=== PATIENT | female | born 1975 | race Caucasian/White ===

== ENCOUNTER 2016-09-12 17:21 | Emergency (ER) | payer MEDICAID ==
[~2016-09-12] VITALS: Ht 170.2 cm; Wt 90.0 kg
[~2016-09-12 17:21] MED LIST: HYDR-3535 PO; PENI500T PO; VENTAER INH
[2016-09-12 17:34] VITALS: BP 113/64; PULSE 80; RESP 15; TEMP 98.3; O2SAT 100
[2016-09-12 18:04] LABS: BLOOD, URINE LARGE (NEG); GLUCOSE,URINE NEG (NEG); KETONE, URINE NEG (NEG); NITRITE,URINE NEG (NEG); PH, URINE 6.5 (5.0-8.5)
[2016-09-12 18:29] LABS: METHOD OF COLLECTION CLEAN CATCH; URINE COLOR YELLOW (YELLW/STRAW); WBC, URINE 0-2 /hpf (0-5)
[2016-09-12 18:30] LABS: BACTERIA, URINE RARE /hpf; COMMENT (UR) CULT NOT INDICATED; CULTURE IF INDICATED CULT NOT INDICATED; SQUAMOUS EPITHELIAL CELL URINE 0-5 /hpf (0-5)
[2016-09-13] MEDS ORDERED: TRAM50TA PO (12:06)
[2016-09-13] MEDS ORDERED: ZOFR4TAB PO (12:06)
== END 2016-09-12 18:45 | disposition left against medical advice (07) ==
LOC: PHED 17:21
DX: R68.89 Other general symptoms and signs (principal)
CPT/HCPCS: 81001; 99281

== ENCOUNTER 2016-09-13 10:46 | Emergency (ER) | payer MEDICAID ==
[~2016-09-13] VITALS: Ht 170.2 cm; Wt 90.0 kg
[2016-09-13 10:54] VITALS: BP 115/67; PULSE 81; RESP 17; TEMP 98; O2SAT 97
[2016-09-13 11:09] VITALS: BP 123/72; PULSE 84; RESP 18; O2SAT 98
[2016-09-13 11:15] LABS: BLOOD, URINE LARGE (NEG); GLUCOSE,URINE NEG (NEG); KETONE, URINE NEG (NEG); NITRITE,URINE NEG (NEG)
[2016-09-13 11:22] LABS: METHOD OF COLLECTION CLEAN CATCH; URINE COLOR YELLOW (YELLW/STRAW)
[2016-09-13] MEDS ORDERED: ROCURONIUM INJ 50 MG/5 ML VIAL ONE (11:22)
[2016-09-13 11:23] LABS: BACTERIA, URINE OCC /hpf; COMMENT (UR) CULT NOT INDICATED; CULTURE IF INDICATED CULT NOT INDICATED; RBC, URINE 100-200 /hpf (0-3); SQUAMOUS EPITHELIAL CELL URINE 0-5 /hpf (0-5)
[2016-09-13] MEDS ORDERED: ETOMIDATE 20 MG/10 ML VIAL ONE (11:23)
--- NOTE | 2016-09-13 11:25 | PD ---
HPI Chief Complaint: Abdominal Pain Time Seen by Provider: 11:13 Travel History International Travel<30 days: No Contact w/Intl Traveler<30days: No Traveled to known affect area: No History of Present Illness HPI The patient was seen and examined in the presence of the nurse. This patient complains of left lower quadrant pain. Duration 2 days. Severity is moderate. No nausea or vomiting or diarrhea. Denies hematuria or dysuria or fever. No alleviating factors. She has history of multiple kidney stones and is worried about having another one. PFSH Past Medical History Arthritis: No Asthma: Yes Autoimmune Disease: No Blood Disorders: No Anxiety: Yes Depression: Yes Cancer: No Cardiovascular Problems: No Chemotherapy: No Cirrhosis: Yes Diabetes: No Diminished Hearing: No Endocrine: No Gastrointestinal Disorders: Yes Glaucoma: No Genitourinary: Yes (KIDNEY STONES) Headaches: Yes Hepatitis: Yes (C) Hiatal Hernia: No Hypertension: No Immune Disorder: No Kidney Stones: Yes (9 TIMES IN PAST, SX 2 TIMES FOR REMOVAL) Medical other: Yes (LOW BACK PROBLEMS) Musculoskeletal: Yes Neurologic: No Psychiatric: No Reproductive: Yes (ENDOMETRIOSIS) Respiratory: Yes (Asthma ) Immunizations Current: Yes Migraines: Yes Radiation Therapy: No Seizures: No Thyroid Disease: No Tetanus Vaccination: < 5 Years Influenza Vaccination: No ?: Not : 4 Para: 3 Miscarriage: 1 : 1 Ovarian Cysts: Yes Dilation and Curettage (D&C): Yes Tubal Ligation: Yes Past Surgical History Abdominal Surgery: No AICD: No Arteriovenous Shunt: No Cardiac Surgery: No Section: Yes Ear Surgery: No Endocrine Surgery: No Eye Surgery: No Genitourinary Surgery: No Gynecologic Surgery: Yes (D&C; C/S 2004, HYSTEROSCOPY 09/2009) Hysterectomy: Yes Insulin Pump: No Joint Replacement: No Neurologic Surgery: No Oral Surgery: Yes (TONSILLECTOMY 1978) Pacemaker: No Thoracic Surgery: No Tonsillectomy: Yes Other Surgery: Yes (D/C) Family History Family Hypercholesterolemia: Yes Social History Alcohol Use: No Tobacco Use: Yes (3 cigs per day.) Substance Use: No Allergies-Medications (Allergen,Severity, Reaction): Coded Allergies: Codeine (Verified Allergy, Severe, Hives, 09/13/16) Latex (Verified Allergy, Severe, Hives, 09/13/16) Adhesives (Verified Allergy, Intermediate, Itching, 09/13/16) Uncoded Allergies: RUBBER (Allergy, Intermediate, HIVES/ITCHING, 07/24/16) Reported Meds & Prescriptions Reported Meds & Active Scripts Active No Active Prescriptions or Reported Medications Review of Systems General / Constitutional: No: Fever Eyes: No: Visual changes HENT: No: Headaches Cardiovascular: No: Chest Pain or Discomfort Respiratory: No: Shortness of Breath Gastrointestinal: Positive: Abdominal Pain Genitourinary: Positive: Flank Pain, No: Dysuria Musculoskeletal: No: Pain Skin: No Rash Neurologic: No: Weakness Psychiatric: No: Depression Endocrine: No: Polydipsia Hematologic/Lymphatic: No: Easy Bruising Physical Exam Narrative GENERAL: Well-nourished, well-developed patient with left lower quadrant and left flank pain . SKIN: Warm and dry. HEAD: Atraumatic. Normocephalic. EYES: Pupils equal and round. No scleral icterus. No injection or drainage. ENT: No nasal bleeding or discharge. Mucous membranes pink and moist. NECK: Trachea midline. No JVD. CARDIOVASCULAR: Regular rate and rhythm. No murmur appreciated. RESPIRATORY: No accessory muscle use. Clear to auscultation. Breath sounds equal bilaterally. GASTROINTESTINAL: Abdomen soft, left lower quadrant is tender without rebound or guarding, nondistended. Hepatic and splenic margins not palpable. MUSCULOSKELETAL: No obvious deformities. No clubbing. No cyanosis. No edema. NEUROLOGICAL: Awake and alert. No obvious cranial nerve deficits. Motor grossly within normal limits. Normal speech. PSYCHIATRIC: Appropriate mood and affect; insight and judgment normal. Data Data Last Documented VS Vital Signs Date Time Temp Pulse Resp B/P Pulse Ox O2 Delivery O2 Flow Rate FiO2 09/13/16 12:00 86 18 108/70 98 09/13/16 11:09 Room Air 09/13/16 10:54 98.0 Orders Urinalysis - C+S If Indicated (09/13/16 11:07) Ct Abd/Pel W/O Iv Contrast (09/13/16 ) Acetamin-Hydrocod 325-5 Mg ([place] 5-325 (09/13/16 11:30) Ketorolac Inj (Toradol Inj) (09/13/16 11:30) Rocuronium Inj (Zemuron Inj) (09/13/16 11:22) Etomidate Inj (Amidate Inj) (09/13/16 11:23) Labs Laboratory Tests Test 09/13/16 11:10 Urine Collection Type CLEAN CATCH Urine Color YELLOW Urine Turbidity SLIGHT Urine pH 7.0 Urine Specific [place] 1.014 Urine Protein NEG mg/dL Urine Glucose (UA) NEG mg/dL Urine Ketones NEG mg/dL Urine Occult Blood LARGE Urine Nitrite NEG Urine Bilirubin NEG Urine Leukocyte Esterase NEG Urine RBC 100-200 /hpf Urine WBC 6-8 /hpf Urine Squamous Epithelial 0-5 /hpf Cells Urine Bacteria OCC /hpf Microscopic Urinalysis Comment CULT NOT INDICATED Urine Collection Time 11:10 [facility] Medical Decision Making Medical Screen Exam Complete: Yes Emergency Medical Condition: Yes Medical Record Reviewed: Yes Differential Diagnosis Colitis, pyelonephritis, kidney stone Narrative Course I have reviewed the patient's electronic medical record. Patient was seen here June [address] revealing only a 1 mm stone Patient's normal vital signs. No objective findings on exam. Discussed risk and benefit of repeat CT She would like to proceed Urinalysis shows hematuria but no infection CT of abdomen and pelvis is identical to the prior one with a 1 mm left-sided nonobstructive stone and no other emergent findings I gave her Toradol injection and 2 pain pills Etiology of her pain is unclear. She is given Zofran and tramadol for symptom relief. Recommending primary care follow-up Diagnosis Primary Impression: Abdominal pain Qualified Code: R10.32 - Left lower quadrant pain Additional Impression: Left flank pain Additional Instructions: The patient was advised to follow up with their physician and return if they worsen. The patient was warned about potential sedation for the medications they will receive on prescription. Med/Other Pt SpecificInfo: Prescription(s) given Scripts Ondansetron (Zofran)4 Mg Tab4 Mg PO Q6HR PRN (NAUSEA OR VOMITING) #12 TAB Ref 0 Prov:Basim Sanon MD 09/13/16 Tramadol 50 Mg Tab50 Mg PO Q6H PRN (PAIN) #20 TAB Ref 0 Prov:Basim Sanon MD 09/13/16 Disposition: 01 DISCHARGE HOME Condition: Stable Basim Sanon MD Sep 13, 2016 11:25
[2016-09-13] MEDS ORDERED: KETOROLAC TROMETHAMINE 60 MG/2 ML (IM) VIAL IM ONE (11:30)
[2016-09-13] MEDS ORDERED: ACETAMINOPHEN/HYDROcodone 325 MG/5 MG TAB PO ONE (11:30)
--- NOTE | 2016-09-13 11:54 | RADHPO ---
EXAM DATE/TIME: 09/13/2016 11:30 [facility] COMPARISON: CT ABDOMEN & PELVIS W/O CONTRAST, July 13, 2016, 19:24. INDICATIONS : Left flank pain. ORAL CONTRAST: No oral contrast ingested. RADIATION DOSE: 17.80 CTDIvol (mGy) MEDICAL HISTORY : Hepatitis C. Cirrhosis. Renal calculi. SURGICAL HISTORY : section. Tubal ligation.Hysterectomy. ENCOUNTER: Initial ACUITY: 1 day PAIN SCALE: 7/10 LOCATION: Left flank TECHNIQUE: Volumetric scanning of the abdomen and pelvis was performed. Using automated exposure control and ad justment of the mA and/or kV according to patient size, radiation dose was kept as low as reasonably achievable to obtain optimal diagnostic quality images. FINDINGS: The limited portion of the lung base visualized is clear. Right kidney: The right kidney is normal in size. No stones are seen. The right ureter is normal in caliber through out its course. Left kidney/ureter: The left kidney is normal in size. There is no hydronephrosis. There is a 1 mm stone seen within the midpole collecting system. The left ureter is followed throughout its course. No stones are seen with in the left ureter. The appearance of the liver, spleen, pancreas and adrenals is within normal limits. The patient is po st cholecystectomy. The abdominal aorta is normal in caliber. There is no retroperitoneal adenopathy. No free air or free fluid is present. The visualized small and large bowel are unremarkable. The pat ient is post hysterectomy. The examination does demonstrate a 2.3 x 4.4 cm soft tissue mass in the ri ght low pelvis this is felt to represent the right ovary. The left ovary is not identified. It is sta ble compared to the previous study dated 07/13/16. He CONCLUSION: 1. There is a 1 mm nonobstructing stone in the collecting system of the left kidney is stable compare d to previous. 2. No definite abnormality to explain the patient's left flank pain is identified. Jayy Mcleod MD on September 13, 2016 at 11:48 Board Certified Radiologist. This report was verified electronically.
[2016-09-13 12:00] VITALS: BP 108/70; PULSE 86; RESP 18; O2SAT 98
[2016-09-13] MEDS ORDERED: TRAM50TA PO (12:06)
[2016-09-13] MEDS ORDERED: ZOFR4TAB PO (12:06)
== END 2016-09-13 12:40 | disposition home or self-care (01) ==
LOC: PHED 10:46
DX: R10.32 Left lower quadrant pain (principal)
CPT/HCPCS: 74176; 81001; 96372; 99284; J1885

== ENCOUNTER 2017-01-07 08:45 | Emergency (ER) | payer MEDICAID ==
[~2017-01-07] VITALS: Ht 170.2 cm; Wt 80.5 kg
[~2017-01-07 08:45] MED LIST changes: -HYDR-3535 PO; -PENI500T PO; +TRAM50TA PO; -VENTAER INH; +ZOFR4TAB PO
[2017-01-07 08:58] VITALS: BP 116/76; PULSE 105; RESP 16; TEMP 97.8; O2SAT 98
[2017-01-07] MEDS ORDERED: INSOMNIA MED (09:07)
[2017-01-07] MEDS ORDERED: PERC5TAB12 PO (09:07)
[2017-01-07] MEDS ORDERED: GABA100C4 PO (09:07)
--- NOTE | 2017-01-07 09:20 | PD ---
HPI Chief Complaint: Injury Time Seen by Provider: 09:15 Travel History International Travel<30 days: No Contact w/Intl Traveler<30days: No Traveled to known affect area: No History of Present Illness HPI This 41-year-old female is complaining of right ankle pain. She says she was getting ready to bring her daughter to school when she fell on her right ankle. She is having pain on the lateral aspect of the ankle. She is currently taking Percocet and appears somewhat sleepy. She says she is sleepy because she was up with her sick daughter most of the night PFSH Past Medical History Arthritis: No Asthma: Yes Autoimmune Disease: No Blood Disorders: No Anxiety: Yes Depression: Yes Cancer: No Cardiovascular Problems: No Chemotherapy: No Cirrhosis: Yes Diabetes: No Patient Takes Glucophage: No Diminished Hearing: No Endocrine: No Gastrointestinal Disorders: Yes Glaucoma: No Genitourinary: Yes (KIDNEY STONES) Headaches: Yes Hepatitis: Yes (C) Hiatal Hernia: No Hypertension: No Immune Disorder: No Kidney Stones: Yes (9 TIMES IN PAST, SX 2 TIMES FOR REMOVAL) Medical other: Yes (LOW BACK PROBLEMS) Musculoskeletal: Yes Neurologic: No Psychiatric: No Reproductive: Yes (ENDOMETRIOSIS) Respiratory: Yes (Asthma ) Immunizations Current: Yes Migraines: Yes Radiation Therapy: No Seizures: No Thyroid Disease: No ?: Not : 4 Para: 3 Miscarriage: 1 : 1 Ovarian Cysts: Yes Dilation and Curettage (D&C): Yes Tubal Ligation: Yes Past Surgical History Abdominal Surgery: No AICD: No Arteriovenous Shunt: No Cardiac Surgery: No Section: Yes Ear Surgery: No Endocrine Surgery: No Eye Surgery: No Genitourinary Surgery: No Gynecologic Surgery: Yes (D&C; C/S 2004, HYSTEROSCOPY 09/2009) Hysterectomy: Yes Insulin Pump: No Joint Replacement: No Neurologic Surgery: No Oral Surgery: Yes (TONSILLECTOMY 1978) Pacemaker: No Thoracic Surgery: No Tonsillectomy: Yes Other Surgery: Yes (D/C) Family History Family Hypercholesterolemia: Yes Social History Alcohol Use: No Tobacco Use: Yes (6 cigs per day.) Substance Use: No Allergies-Medications (Allergen,Severity, Reaction): Coded Allergies: Codeine (Verified Allergy, Severe, Hives, 09/13/16) Latex (Verified Allergy, Severe, Hives, 09/13/16) Adhesives (Verified Allergy, Intermediate, Itching, 09/13/16) Uncoded Allergies: RUBBER (Allergy, Intermediate, HIVES/ITCHING, 07/24/16) Reported Meds & Prescriptions Reported Meds & Active Scripts Active Reported [insomnia med] Gabapentin 100 Mg Cap 100 Mg PO TID Percocet (Oxycodone-Acetaminophen) 5-325 mg Tab 1 Tab PO Q4H PRN Review of Systems General / Constitutional: No: Fever, Chills Eyes: No: Diploplia HENT: No: Headaches, Vertigo Cardiovascular: No: Chest Pain or Discomfort, Palpitations Respiratory: No: Cough, Shortness of Breath Gastrointestinal: No: Nausea, Vomiting Genitourinary: No: Urgency, Frequency Musculoskeletal: Positive: Myalgias, Pain Skin: No Rash, No Itching Physical Exam Narrative GENERAL: Patient is sleepy but she does wake up SKIN: Focused skin assessment warm/dry. HEAD: Atraumatic. Normocephalic. EYES: Pupils equal and round. No scleral icterus. No injection or drainage. ENT: No nasal bleeding or discharge. Mucous membranes pink and moist. NECK: Trachea midline. No JVD. CARDIOVASCULAR: Regular rate and rhythm. No murmur appreciated. RESPIRATORY: No accessory muscle use. Clear to auscultation. Breath sounds equal bilaterally. GASTROINTESTINAL: Abdomen soft, non-tender, nondistended. Hepatic and splenic margins not palpable. MUSCULOSKELETAL: No obvious deformities. No clubbing. No cyanosis. No edema. Her swelling and tenderness of the lateral aspect of the right ankle. The knee is nontender NEUROLOGICAL: Awake and alert. No obvious cranial nerve deficits. Motor grossly within normal limits. Slurred speech. PSYCHIATRIC: Appropriate mood and affect; insight and judgment normal. Data Data Last Documented VS Vital Signs Date Time Temp Pulse Resp B/P Pulse Ox O2 Delivery O2 Flow Rate FiO2 01/07/17 08:58 97.8 105 16 116/76 98 Orders Ankle, Complete ([id number]) (01/07/17 09:18) Acetaminophen (Tylenol) (01/07/17 10:15) MDM Medical Decision Making Medical Screen Exam Complete: Yes Emergency Medical Condition: Yes Medical Record Reviewed: Yes Differential Diagnosis Differential includes ankle fracture, ankle sprain Narrative Course X-rays negative for fracture. Impression is right ankle sprain. She says she is not able to bear weight. He put her in an ankle stirrup and crutches Diagnosis Primary Impression: Right ankle sprain Qualified Code: S93.431A - Sprain of tibiofibular ligament of right ankle, initial encounter Disposition: 01 DISCHARGE HOME Condition: Stable Carlos Feliz MD January 07, 2017 09:20
--- NOTE | 2017-01-07 09:55 | RADHPO ---
EXAM DATE/TIME: 01/07/2017 09:33 [facility] COMPARISON: No previous studies available for comparison. INDICATIONS : Fall, right ankle pain. MEDICAL HISTORY : None. SURGICAL HISTORY : None. ENCOUNTER: Initial ACUITY: 1 day PAIN SCORE: 8/10 LOCATION: Right ankle FINDINGS: Three views of the right ankle demonstrate no fracture or dislocation. Ankle mortise is intact. J[employer] alization is within normal limits and there is no significant arthropathy. No soft tissue abnormality or radiopaque foreign body is identified. CONCLUSION: No acute abnormality is identified. Hang Mcelroy MD on January 07, 2017 at 9:53 Board Certified Radiologist. This report was verified electronically.
[2017-01-07] MEDS ORDERED: ACETAMINOPHEN 325 MG TAB PO ONE (10:15)
== END 2017-01-07 10:32 | disposition home or self-care (01) ==
LOC: PHED 08:45
DX: S93.431A Sprain of tibiofibular ligament of right ankle, initial encounter (principal); J45.909 Unspecified asthma, uncomplicated; F41.9 Anxiety disorder, unspecified; F32.9 Major depressive disorder, single episode, unspecified; K74.60 Unspecified cirrhosis of liver; F17.210 Nicotine dependence, cigarettes, uncomplicated; W18.30XA Fall on same level, unspecified, initial encounter
CPT/HCPCS: 73610; 99283; E0113; L1906

== ENCOUNTER 2017-01-10 11:30 | Emergency (ER) | payer MEDICAID ==
[~2017-01-10] VITALS: Ht 170.2 cm; Wt 84.5 kg
[~2017-01-10 11:30] MED LIST changes: +GABA100C4 PO; +INSOMNIA MED; +PERC5TAB12 PO; -TRAM50TA PO; -ZOFR4TAB PO
[2017-01-10 11:33] VITALS: BP 122/73; PULSE 100; RESP 16; TEMP 98.3; O2SAT 99
--- NOTE | 2017-01-10 12:07 | PD ---
HPI Chief Complaint: Musculoskeletal Complaint Time Seen by Provider: 11:50 Travel History International Travel<30 days: No Contact w/Intl Traveler<30days: No Traveled to known affect area: No History of Present Illness HPI 41 year-old female presents to the emergency room for evaluation of right ankle pain, swelling, and bruising that started after injuring it 3 days ago. Patient came via ambulance at that time and was diagnosed with ankle sprain after having a negative x-ray. She was given Tylenol, crutches, and ankle stirrup. Patient states since then the swelling and pain has gotten worse. She states she has been elevating her ankle and using her splint and crutches but they are not helping. She has also been taking Tylenol and Motrin without relief in symptoms. Patient was given a prescription for Percocet 7 days ago for a dental abscess but no longer has any left. Patient called her primary care physician and has an appointment next week but is asking for pain control until she can get in with him. PFSH Past Medical History Arthritis: No Asthma: Yes Autoimmune Disease: No Blood Disorders: No Anxiety: Yes Depression: Yes Cancer: No Cardiovascular Problems: No Chemotherapy: No Cirrhosis: Yes Diabetes: No Diminished Hearing: No Endocrine: No Gastrointestinal Disorders: Yes Glaucoma: No Genitourinary: Yes (KIDNEY STONES) Headaches: Yes Hepatitis: Yes (C) Hiatal Hernia: No Hypertension: No Immune Disorder: No Kidney Stones: Yes (9 TIMES IN PAST, SX 2 TIMES FOR REMOVAL) Medical other: Yes (LOW BACK PROBLEMS) Musculoskeletal: Yes Neurologic: No Psychiatric: No Reproductive: Yes (ENDOMETRIOSIS) Respiratory: Yes (Asthma) Immunizations Current: Yes Migraines: Yes Radiation Therapy: No Seizures: No Thyroid Disease: No ?: Not : 4 Para: 3 Miscarriage: 1 : 1 Ovarian Cysts: Yes Dilation and Curettage (D&C): Yes Tubal Ligation: Yes Past Surgical History Abdominal Surgery: No AICD: No Arteriovenous Shunt: No Cardiac Surgery: No Section: Yes (x2) Cholecystectomy: Yes Ear Surgery: No Endocrine Surgery: No Eye Surgery: No Genitourinary Surgery: No Gynecologic Surgery: Yes (D&C; C/S 2004, HYSTEROSCOPY 09/2009) Hysterectomy: Yes Insulin Pump: No Joint Replacement: No Neurologic Surgery: No Oral Surgery: Yes (TONSILLECTOMY 1978) Pacemaker: No Thoracic Surgery: No Tonsillectomy: Yes Other Surgery: Yes Family History Family Hypercholesterolemia: Yes Social History Alcohol Use: No Tobacco Use: Yes (1/2 ppd) Substance Use: No Allergies-Medications (Allergen,Severity, Reaction): Coded Allergies: Codeine (Verified Allergy, Severe, Hives, 01/10/17) Latex (Verified Allergy, Severe, Hives, 01/10/17) Adhesives (Verified Allergy, Intermediate, Itching, 01/10/17) Uncoded Allergies: RUBBER (Allergy, Intermediate, HIVES/ITCHING, 07/24/16) Reported Meds & Prescriptions Reported Meds & Active Scripts Active No Active Prescriptions or Reported Medications Review of Systems Except as stated in HPI: all other systems reviewed are Neg Physical Exam Narrative GENERAL: Well-nourished, well-developed female in no acute distress. Afebrile. Ambulatory with crutches. SKIN: Focused skin assessment warm/dry. Moderate to severe ecchymosis of the bilateral malleoli of the right ankle. No erythema. HEAD: Normocephalic. EYES: No scleral icterus. No injection or drainage. NECK: Supple, trachea midline. No JVD or lymphadenopathy. EXTREMITY: Right ankle extremely tender to palpation over the lateral malleolus. Limited range of motion of the foot and ankle secondary to pain. Moderate to severe edema of the right lower extremity. 2+ dorsalis pedis pulses. Less than 2 second capillary refill distally. Compartments soft. Data Data Last Documented VS Vital Signs Date Time Temp Pulse Resp B/P Pulse Ox O2 Delivery O2 Flow Rate FiO2 01/10/17 11:33 98.3 100 16 122/73 99 MDM Medical Decision Making Medical Screen Exam Complete: Yes Emergency Medical Condition: No Medical Record Reviewed: Yes Differential Diagnosis Sprain Narrative Course 41-year-old female presents to the emergency room for evaluation of right ankle sprain that occurred 3 days ago. Patient came to the emergency room at the time of injury and had an x-ray was negative. Per x-ray report, ankle mortise is intact. Right lower extremity is edematous with moderate ecchymosis and extreme tenderness to palpation. There is no erythema. Compartments are soft. Right lower extremity is neurovascularly intact with 2+ dorsalis pedis pulse. This is ankle sprain. Patient was told to continue taking [id number] medications for her pain, elevate, and follow-up with her primary care physician. Because patient has recent history of narcotic use documented in [place], I do not want to contribute to the potential for addiction. There are no urgent or emergent medical conditions at this time. A medical screening exam was performed: At the time of evaluation the presenting medical condition was determined not to be of an emergent nature. The patient was given the option of receiving additional care, but declined. Patient was given options for additional community resources from which to obtain care. The Patient Has Been advised to seek medical attention for their presenting complaint. The patient has been advised to return to the ER at any time if an emergent condition develops. Diagnosis Primary Impression: Encounter for medical screening examination Scripts No Active Prescriptions or Reported Meds Disposition: 01 DISCHARGE HOME Condition: Stable Katherin Cooper January 10, 2017 12:07
== END 2017-01-10 11:57 | disposition left against medical advice (07) ==
LOC: PHEFT 11:30
DX: M25.571 Pain in right ankle and joints of right foot (principal)
CPT/HCPCS: 99281

== ENCOUNTER 2017-03-05 20:42 | Emergency (ER) | payer MEDICAID ==
[~2017-03-05] VITALS: Ht 170.2 cm; Wt 81.0 kg
[2017-03-05 20:53] VITALS: BP 115/70; PULSE 90; RESP 18; TEMP 98.8; O2SAT 97
[2017-03-05] MEDS ORDERED: GABA300C5 PO (21:11)
--- NOTE | 2017-03-05 21:36 | PD ---
HPI Chief Complaint: Laceration/Skin Injury Time Seen by Provider: 21:34 Travel History International Travel<30 days: No Contact w/Intl Traveler<30days: No Traveled to known affect area: No History of Present Illness HPI 41-year-old female presents to the emergency room for evaluation of a laceration to her left second finger that occurred just prior to arrival. Patient cut herself with a kitchen knife while cutting potatoes. States it was bleeding severely and she finally got the bleeding to stop but it opened back up. Denies being on blood thinners. Denies loss of range of motion or paresthesias. Reports moderate pain. Last tetanus was 3 years ago. 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/not treated ) Cardiovascular Problems: No Chemotherapy: No Cirrhosis: Yes Diabetes: No Diminished Hearing: No Endocrine: No Gastrointestinal Disorders: Yes Glaucoma: No Genitourinary: Yes (KIDNEY STONES) Headaches: Yes Hepatitis: Yes (C) Hiatal Hernia: No Hypertension: No Immune Disorder: No Kidney Stones: Yes Musculoskeletal: Yes ("Low back problems") Neurologic: No Psychiatric: No Reproductive: Yes (Endometriosis) Respiratory: Yes (Asthma) Immunizations Current: Yes Migraines: Yes Radiation Therapy: No Seizures: No Thyroid Disease: No Tetanus Vaccination: < 5 Years Influenza Vaccination: Yes ?: Not : 4 Para: 3 Miscarriage: 1 : 1 Ovarian Cysts: Yes Dilation and Curettage (D&C): Yes Tubal Ligation: Yes Past Surgical History Abdominal Surgery: No AICD: No Arteriovenous Shunt: No Cardiac Surgery: No Section: Yes (X's 2) Cholecystectomy: Yes Ear Surgery: No Endocrine Surgery: No Eye Surgery: No Genitourinary Surgery: Yes (Kidney stones removed ) Gynecologic Surgery: Yes (Hysteroscopy ) Hysterectomy: Yes Insulin Pump: No Joint Replacement: No Neurologic Surgery: No Oral Surgery: Yes (TONSILLECTOMY 1978) Pacemaker: No Thoracic Surgery: No Tonsillectomy: Yes Other Surgery: Yes Family History Family Hypercholesterolemia: Yes Social History Alcohol Use: No Tobacco Use: Yes (2 PPD) Substance Use: No Allergies-Medications (Allergen,Severity, Reaction): Coded Allergies: Codeine (Verified Allergy, Severe, Hives, 03/05/17) Latex (Verified Allergy, Severe, Hives, 03/05/17) Adhesives (Verified Allergy, Intermediate, Itching, 03/05/17) Uncoded Allergies: RUBBER (Allergy, Intermediate, Hives/itching, 03/05/17) Reported Meds & Prescriptions Reported Meds & Active Scripts Active Reported Gabapentin 300 Mg Cap 300 Mg PO BID Review of Systems Except as stated in HPI: all other systems reviewed are Neg Physical Exam Narrative GENERAL: Well-nourished, well-developed female in no acute distress. Afebrile. Ambulatory. SKIN: Focused skin assessment warm/dry. There is a 0.5 cm avulsion to the left second distal finger. No bleeding. HEAD: Normocephalic. EYES: No scleral icterus. No injection or drainage. NECK: Supple, trachea midline. No JVD or lymphadenopathy. CARDIOVASCULAR: Regular rate and rhythm without murmurs, gallops, or rubs. RESPIRATORY: Breath sounds equal bilaterally. No accessory muscle use. MUSCULOSKELETAL: No cyanosis, or edema. Full range of motion of the hand. Data Data Last Documented VS Vital Signs Date Time Temp Pulse Resp B/P Pulse Ox O2 Delivery O2 Flow Rate FiO2 03/05/17 20:53 98.8 90 18 115/70 97 MDM Medical Decision Making Medical Screen Exam Complete: Yes Emergency Medical Condition: Yes Medical Record Reviewed: Yes Differential Diagnosis Laceration, abrasion, skin tear Narrative Course 41-year-old female presents to the emergency room for evaluation of laceration to her left index finger that occurred just prior to arrival. Patient cut herself with a knife while cutting potatoes. Last tetanus was 3 years ago. She applied pressure and got it to stop but it opened back up. She is not on any blood thinners. Physical exam reveals avulsion to the left index finger with intact skin. It is not bleeding on exam. It was repaired with glue. Patient was discharged with wound care instructions. Told to follow up with a primary care physician as needed or return for worsening symptoms. She understands and agrees to plan. Diagnosis Primary Impression: left index finger avulsion Ruled Out: Laceration of left index finger Referrals: Primary Care Physician Patient Instructions: General Instructions, Skin Avulsion (ED) Additional Instructions: Rest and drink plenty of fluids. Keep wound clean and dry. Apply triple antibiotic ointment daily. Follow-up with a primary care physician. Return to the emergency room for worsening symptoms. Med/Other Pt SpecificInfo: Prescription(s) given Disposition: 01 DISCHARGE HOME Condition: Stable Katherin Cooper Mar 05, 2017 21:36
== END 2017-03-05 22:01 | disposition home or self-care (01) ==
LOC: PHEFT 20:42
DX: S61.211A Laceration without foreign body of left index finger without damage to nail, initial encounter (principal); W26.0XXA Contact with knife, initial encounter; Y93.G1 Activity, food preparation and clean up
CPT/HCPCS: 12001